=== PATIENT | female | born 1995 | race Caucasian/White ===

== ENCOUNTER 2016-10-17 19:57 | Emergency (ER) | payer OTHER ==
[2016-10-17 22:24] VITALS: BP 157/101
== END 2016-10-17 22:24 | disposition home or self-care (01) ==
LOC: ED 19:57
DX: R07.9 Chest pain, unspecified (principal); R07.89 Other chest pain

== ENCOUNTER 2017-04-20 20:46 | Emergency (ER) | payer OTHER ==
[~2017-04-20] VITALS: Ht 165.1 cm; Wt 77.1 kg
[2017-04-20 20:48] VITALS: Ht 165.1 cm; Wt 77.1 kg
[2017-04-20 22:36] LABS: microscopic required? NO
[2017-04-20 22:49] LABS: urine erythrocyte NEGATIVE (NEGATIVE)
[2017-04-20 22:56] LABS: AMPHETAMINE QUAL UR NONE DETECTED (NEG <=1000)
[2017-04-20 23:13] LABS: BASOPHIL % 1.4 % (0-2); PLATELET COUNT 352 x10^3mcL (130-400); RED CELL DISTRIBUTION WIDTH 14.2 % (11.5-14.5)
[2017-04-20 23:39] LABS: CARBON DIOXIDE 27.4 mmol/L (21-32); CHLORIDE SERUM 104 mmol/L (98-107); CREATININE SERUM 0.7 mg/dL (0.6-1.0); GFR1 > 60 mL/min; GLUCOSE SERUM 91 mg/dL (74-106); POTASSIUM SERUM 3.7 mmol/L (3.5-5.1); SODIUM SERUM 140 mmol/L (136-145)
[2017-04-20 23:43] LABS: ALBUMIN 4.3 g/dL (3.4-5.0); ALKALINE PHOSPHATASE 86 U/L (46-116); ALT/SGPT 40 U/L (14-59); AST/SGOT 23 U/L (15-37); BILIRUBIN TOTAL 0.3 mg/dL (0.20-1.00); FREE T4 1.12 ng/dL (0.76-1.46); LIPASE 142 IU/L (73-393)
[2017-04-20 23:45] LABS: TOTAL PROTEIN, SERUM 8.6 g/dL (6.4-8.2)
[2017-04-21 01:55] VITALS: BP 119/75
== END 2017-04-21 01:55 | disposition home or self-care (01) ==
LOC: ED 20:46
PROVIDERS: Emergency Medicine
DX: R00.2 Palpitations (principal); R51 Headache
CPT/HCPCS: 83880; 84439; 85378; 87804; G0480; J7030

== ENCOUNTER 2019-12-16 18:49 | Observation (INO) | payer OTHER ==
[~2019-12-16] VITALS: Ht 165.1 cm; Wt 76.2 kg
[2019-12-16 19:02] VITALS: Ht 165.1 cm; Wt 76.2 kg
[2019-12-16 20:22] LABS: BASOPHIL % 0.3 % (0-2)
[2019-12-16 20:23] LABS: PLATELET COUNT 410 x10^3mcL (130-400); RED CELL DISTRIBUTION WIDTH 15.3 % (11.5-14.5)
[2019-12-16 20:33] LABS: CALCIUM 9.2 mg/dL (8.5-10.1); CHLORIDE SERUM 99 mmol/L (98-107); CREATININE SERUM 0.7 mg/dL (0.6-1.0); GFR1 > 60 mL/min; GLUCOSE SERUM 94 mg/dL (74-106); POTASSIUM SERUM 3.6 mmol/L (3.5-5.1); SODIUM SERUM 136 mmol/L (136-145)
[2019-12-16 20:39] LABS: ALBUMIN 3.8 g/dL (3.4-5.0); ALKALINE PHOSPHATASE 62 U/L (46-116); ALT/SGPT 64 U/L (14-59); AST/SGOT 35 U/L (15-37); BILIRUBIN TOTAL 0.2 mg/dL (0.20-1.00); HDL CHOLESTEROL 53 mg/dL (40-60); LIPASE 125 IU/L (73-393); TOTAL PROTEIN, SERUM 8.1 g/dL (6.4-8.2)
[2019-12-16 20:40] LABS: CHOLESTEROL 235 mg/dL (<200); CHOLESTEROL/HDL RATIO 4.4; TRIGLYCERIDES 201 mg/dL (<150)
[2019-12-16 20:43] LABS: FREE T4 1.12 ng/dL (0.76-1.46); FREE THYROXINE INDEX 3.3 ug/dL (1.4-4.5); T4(THYROXINE) 12.1 ug/dL (4.7-13.3)
[2019-12-16 20:52] LABS: microscopic required? NO
[2019-12-16 21:02] LABS: urine erythrocyte NEGATIVE (NEGATIVE)
[2019-12-16 21:21] LABS: AMPHETAMINE QUAL UR NONE DETECTED (See below)
[2019-12-16 22:17] LABS: T3 TOTAL 2.14 ng/mL
[2019-12-16 23:33] VITALS: BP 126/67
[2019-12-17 06:03] VITALS: BP 114/72
[2019-12-17 08:36] VITALS: BP 116/72
[2019-12-17 12:13] VITALS: BP 142/98
[2019-12-17 13:16] VITALS: BP 142/98
[2019-12-17 13:44] VITALS: BP 142/98
== END 2019-12-17 14:29 | disposition home or self-care (01) ==
LOC: ED 18:49 → DU 22:08
PROVIDERS: Specialist; ADMIT Internal Medicine; ATTEND Internal Medicine
DX: R07.89 Other chest pain (principal); F41.9 Anxiety disorder, unspecified; I10 Essential (primary) hypertension
CPT/HCPCS: 83880; 84439; 90658; G0378; J3490; J7030